=== PATIENT | male | born 1945 | race Caucasian/White ===

== ENCOUNTER 2020-11-07 09:53 | Day surgery (SDC) | payer OTHER ==
[2020-11-03 08:50] VITALS: BMI 26.5
[2020-11-07] MEDS ORDERED: MIDAZOLAM HCL 2 MG/2 ML SINGLE DOSE VIAL ONE (12:09)
[2020-11-07] MEDS ORDERED: PROPOFOL 20 ML ONE (12:09)
[2020-11-07] MEDS ORDERED: MEPERIDINE HCL 50 MG/ML VIAL ONE (13:36)
[2020-11-07] MEDS ORDERED: MEPERIDINE HCL 25 MG/ML VIAL IVPUSH ONE (13:40)
[2020-11-07] MEDS ORDERED: ONDANSETRON 4 MG/2 ML VIAL IVPUSH PRN (13:40)
[2020-11-07] MEDS ORDERED: oxyCODONE HCL 5 MG TABLET PO PRN (13:40)
[2020-11-07] MEDS ORDERED: LACTATED RINGERS SOLUTION 1,000 ML IV SCH (13:45)
[2020-11-07] MEDS ORDERED: ceFAZolin 2 GRAM PREMIX BAG IVPB ONE (16:00)
[2020-11-07 16:31] VITALS: BP 116/75; PULSE 82; TEMP 97.4
== END 2020-11-07 16:31 | disposition home or self-care (01) ==
LOC: FASU 09:53
PROVIDERS: ATTEND Orthopaedic Surgery
PROC: 0LQM0ZZ Repair Left Upper Leg Tendon, Open Approach (ICD-10-PCS; principal; 2020-11-07 12:36)
DX: S76.112A Strain of left quadriceps muscle, fascia and tendon, initial encounter (principal); X58.XXXA Exposure to other specified factors, initial encounter; Y93.9 Activity, unspecified; Y92.9 Unspecified place or not applicable
CPT/HCPCS: 94760; J2175